=== PATIENT | male | born 1955 | race Caucasian/White ===

== ENCOUNTER 2024-06-03 22:32 | Emergency (ER) | payer SELFPAY ==
[2024-06-03 22:33] VITALS: BP 195/102; PULSE 64; RESP 16; TEMP 36.4; O2SAT 96; BMI 30.9
--- NOTE | 2024-06-03 22:35 | XRR_ITS ---
PROCEDURE INFORMATION: Exam: XR Chest Exam date and time: 06/03/2024 10:39 PM Age: 68 years old Clinical indication: Shortness of breath; Prior surgery; Surgery date: 6+ months; Surgery type: Pacer; C/O SOB TECHNIQUE: Imaging protocol: Radiologic exam of the chest. Views: 1 view. COMPARISON: No relevant prior studies available. FINDINGS: Tubes, catheters and devices: Left chest wall implantable defibrillator. Lungs: Calcified left hilar lymph nodes. Left basilar atelectasis and/or scarring. No pulmonary consolidation. Left basilar calcified granuloma. Pleural spaces: No pleural effusion or pneumothorax. Heart/Mediastinum: Heart size is within normal limits. Bones/joints: No acute osseous abnormalities are seen. XR/XR chest 1V portable [id number] IMPRESSION: No acute cardiopulmonary disease.
[2024-06-03 22:46] VITALS: PULSE 64; RESP 18; O2SAT 95
[2024-06-03 22:50] LABS: Basophils % 0.1 %; Eosinophils # 0.1 10^3/uL (0.0-0.8); Eosinophils % 1.2 %; Hematocrit 45.3 % (37-53); Lymphocytes # 1.8 10^3/uL (0.8-4.8); Lymphocytes % 18.1 %; Mean Corpuscular HGB Conc 32.9 g/dL (30-55); Mean Corpuscular Hemoglobin 27.6 pg (27-33); Mean Corpuscular Volume 83.9 fl (82-101); Mean Platelet Volume 9.1 fL (7.4-10.4); Monocytes # 0.7 10^3/uL (0.2-0.9); Monocytes % 7.1 %; Neutrophils # 7.47 10^3/uL (1.8-7.7); Neutrophils % 73.2 %; Nucleated Red Blood Cells % 0 %; Platelet Count 212 10^3/cmm (157-399); Red Cell Distribution Width 12.8 % (12.1-15.1); White Blood Count 10.19 10^3/uL (3.29-11.43)
--- NOTE | 2024-06-03 22:54 | ECG_ITS ---
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 Measurements Intervals [place] Rate: 58 P: 34 NV: 179 QRS: 45 QRSD: 109 T: 62 QT: 369 QTc: 365 Interpretive Statements SINUS BRADYCARDIA WITH SINUS ARRHYTHMIA INCOMPLETE RIGHT BUNDLE BRANCH BLOCK [90+ ms QRS DURATION, TERMINAL R IN V1/V2, 40+ ms S IN I/aVL/V4/V5/V6] No previous ECG available for comparison Electronically Signed On 06-04-2024 18:50:01 ELECTRO MECHANICAL TECHNOLOGIST by Jose Juan M.D. [email or web address]
[2024-06-03 23:08] LABS: Troponin(5th) Baseline 11 ng/L (0-15)
[2024-06-03 23:15] LABS: Alanine Aminotransferase 26 U/L (0-41); Albumin Level 4.3 g/dL (3.5-5.2); Alkaline Phosphatase 57 U/L (40-130); Anion Gap 15.6 (5-19); Aspartate Amino Transferase 24 U/L (0-40); Blood Urea Nitrogen 12 mg/dL (8-23); Calcium 9.3 mg/dL (8.5-10.5); Carbon Dioxide 25 mmol/L (22-29); Chloride 101 mmol/L (98-107); Creatinine Clr Calc Pharmacy 98.6914; Globulin 3.2 g/dL (1.3-4.6); Glomerular Filtration Rate 96.4 mL/min (90-130); Glucose 99 mg/dL (65-115); NT Pro B Type Natriuretic Pept 104 pg/mL (0-125); Osmolality Calculated 286 mOsm/kg (285-295); Potassium 3.6 mmol/L (3.5-5.1); Sodium 138 mmol/L (136-145); Total Bilirubin 0.4 mg/dL (0.15-1.2); Total Protein 7.5 g/dL (6.6-8.7)
[2024-06-03 23:57] LABS: Influenza A NEGATIVE (Negative); Influenza B NEGATIVE (Negative); Respiratory Syncytial Virus Ce NEGATIVE (Negative); SARS-CoV-2 PCR NEGATIVE (Negative)
--- NOTE | 2024-06-04 00:38 | ED_ITS ---
Documented by User: JAMES Loving 06/04/24 00:53 HPI - SOB/Dyspnea 2 General: Chief Complaint: Shortness of Breath/Dyspnea Stated Complaint: SOB tingles in arms and feet Time Seen by Provider: 06/03/24 22:34 History of Present Illness: HPI Narrative: Patient is a 68-year-old man that presents to the emergency department with complaints of shortness of breath with tingling in arms and legs that started at 8:30 PM tonight. Since that time symptoms have resolved. Initially upon arrival in the emergency department he was hypertensive but that has improved. Currently 153/92. Patient denies chest pain. He denies fever or chills. He does have a cough that is intermittently productive. The sputum is clear to white. He has no chronic lung disease. He does not smoke or use any tobacco products. He does have a history of Brugada syndrome and has a defibrillator. Strong family history with 2 brothers that have of cardiac disease. Associated symptoms: Deny chest pain, palpitations or syncope Related Data Allergies Allergy/AdvReac Type Severity Reaction Status Date / Time No Known Allergies Allergy Verified 06/03/24 22:41 Review of Systems 2 General: Reports: 10 or more systems reviewed and unremarkable except in HPI and below Card: Denies: chest pain, palpitations, irregular heart rhythm, edema, swelling of feet/ankles, syncope, leg pain with exertion or acrocyanosis Resp: Reports: dyspnea and productive cough Physical Exam 2 Const: COMMON NORMALS: no acute distress, patient oriented x3 and alert G ENERAL APPEARANCE: cooperative ORIENTATION/CONSCIOUSNESS: Yes awake, Yes oriented to person, Yes oriented to place and Yes oriented to time HENMT: COMMON NORMALS: normocephalic and atraumatic HEAD & SCALP: n ormocephalic and atraumatic FACE & SINUS: normal facial exam MOUTH: Normal oral and palatal mucosa present THROAT: posterior oropharynx normal Eye: COMMON NORMALS: Equal, round and reactive pupils present, EOMs intact bilaterally, conjunctivae normal and no scleral icterus GENERAL EYE: a ppearance normal, both eyes and all related structures ALIGNMENT: Yes alignment normal PERIORBITAL: periorbital findings normal CONJUNCTIVA: Yes conjunctivae normal PUPIL: Yes Equal, round and reactive pupils present Neck/C-Spine: COMMON NORMALS: full ROM GENERAL: Yes normal visual inspection Lymph: LYMPHATIC: no lymphadenopathy noted Chest: COMMONS NORMALS: normal inspection of the chest Breast/axilla inspection: Yes no chest deformity, asymmetry, normal contours, no nodules, masses, tenderness Resp: COMMON NORMALS: normal respiratory effort, No retractions, No use of accessory muscles and clear to auscultation bilaterally EFFORT & INSPECTION: Yes able to speak in complete sentences and Yes symmetric chest movement A USCULTATION: clear to auscultation bilaterally Cardio: COMMON NORMALS: regular rate, regular rhythm and Peripheral pulses 2+ throughout RATE: regular rate RHYTHM: regular rhythm PERIPHERAL PULSES: Peripheral pulses 2+ throughout GI: COMMON NORMALS: Normal to inspection, nondistended, normoactive bowel sounds present, Soft to palpation, non-tender and No hepatosplenomegaly present INSPECTION: Yes normal to inspection AUSCULTATION: Yes normoactive bowel sounds PALPATION: Yes Soft to palpation and Yes No hepatosplenomegaly present RECTAL EXAM: Yes deferred Extremity: COMMON NORMALS: normal to inspection GENERAL: Yes normal exam except as noted Neuro: COMMON NORMALS: patient oriented x3 SENSORIUM/ORIENTATION: Yes alert, Yes oriented to person, Yes oriented to place and Yes oriented to time CRANIAL NERVES: Yes CN normal except as noted Psych: COMMON NORMALS: mental status grossly normal, Normal thought process present, cooperative, activity/motor behavior normal, denies homicidal ideation and denies suicidal ideation THOUGHT PROCESS: Normal thought process present Skin: COMMON NORMALS: no rashes or lesions noted, no wounds and turgor normal GENERAL SKIN EXAM: no rashes or lesions noted and turgor normal Course 2 Vital Signs: Vital signs: Vital Signs Temperature 97.6 F 06/03/24 22:33 Pulse Rate 53 L 06/04/24 01:02 Respiratory Rate 18 06/03/24 22:46 Blood Pressure 153/78 06/04/24 01:02 Pulse Oximetry 92 06/04/24 01:02 Oxygen Delivery Me thod Room Air 06/04/24 01:02 MDM - SOB/Dyspnea Medical Decision Making Patient was evaluated in the emergency department with complaints of shortness of breath. Shortness of breath resolved before his arrival in the emergency department but patient was referred here due to his history of Brugada syndrome. He reports primary physician believes that he could have a pulmonary embolism. Here in the emergency department patient reported shortness of breath that lasted for short period of time at home. He denies any chest pain and denies palpitations. He has not had his defibrillator fire His laboratory evaluation included a CBC, CMP, COVID influenza RSV test, BNP and troponin series. We obtained an EKG as well as a XR chest. The XR chest revealed no infiltrates or other cardiopulmonary abnormality. monitor technician has revealed a sinus bradycardia throughout his day here in the emergency department. His EKG is performed at 2254 and reveals a sinus bradycardia at a ventricular rate of 58 beats a minute. There is a QTc of 367. There is no ectopy, consistent ST elevation or abnormal T wave inversion. There is less than 1 mm elevation in leads V2 and V3. I reviewed the EKG with Dr. Escobar. CBC reveals no leukocytosis anemias or thrombocytopenia. CMP reveals no electrolyte abnormalities, dehydration, renal or liver dysfunction. Negative COVID influenza and RSV BNP is within normal limits 104 Troponin series initiated. Initial is 11. Heart score of 3 points for 1-2 risk factors and 2 points for age. I reviewed diagnostic findings with patient as well as Dr. Escobar. We are going to wait for the 2-hour delta. Patient did ask questions regarding the utility of a CT chest with contrast to rule out pulmonary embolism. This was a suggestion by his primary care doctor. Patient's shortness of breath had improved prior to his arrival. He denied any chest pain, has not had any EKG changes, and is not tachycardic. At this time I do not think any further diagnostics are warranted. Patient verbalizes understanding At this time while we are awaiting 2-hour delta, I will transition care to Dr. Escobar. Lab Data 06/03/24 22:40 06/03/24 22:40 Labs/Radiology: Radiology Impressions Chest X-Ray 06/03/24 22:35 IMPRESSION: No acute cardiopulmonary disease. Laboratory Results WBC 10.19 10^3/uL (3.29-11.43) 06/03/24 22:40 RBC 5.40 10^6/uL (3.85-5.65) 06/03/24 22:40 Hgb 14.90 g/dL (11.27-16.99) 06/03/24 22:40 Hct 45.3 % (37-53) 06/03/24 22:40 MCV 83.9 fl (82-101) 06/03/24 22:40 MCH 27.6 pg (27-33) 06/03/24 22:40 MCHC 32.9 g/dL (30-55) 06/03/24 22:40 RDW 12.8 % (12.1-15.1) 06/03/24 22:40 Plt Count 212 10^3/cmm (157-399) 06/03/24 22:40 MPV 9.1 fL (7.4-10.4) 06/03/24 22:40 Neut % (Auto) 73.2 % 06/03/24 22:40 Lymph % (Auto) 18.1 % 06/03/24 22:40 [place] % (Auto) 7.1 % 06/03/24 22:40 Eos % (Auto) 1.2 % 06/03/24 22:40 Baso % (Auto) 0.1 % 06/03/24:40 Neut # (Auto) 7.47 10^3/uL (1.8-7.7) 06/03/24 22:40 Lymph # (Auto) 1.8 10^3/uL (0.8-4.8) 06/03/24 22:40 [place] # (Auto) 0.7 10^3/uL (0.2-0.9) 06/03/24 22:40 Eos # (Auto) 0.1 10^3/uL (0.0-0.8) 06/03/24 22:40 Baso # (Auto) 0.0 10^3/uL (0.0-0.1) 06/03/24 22:40 Nucleated RBC % (auto) 0 % 06/03/24:40 Nucleated RBCs # 0.0 /100WBC 06/03/24 22:40 Sodium 138 mmol/L (136-145) 06/03/24 22:40 Potassium 3.6 mmol/L (3.5-5.1) 06/03/24 22:40 Chloride 101 mmol/L (98-107) 06/03/24 22:40 Carbon Dioxide 25 mmol/L (22-29) 06/03/24 22:40 Anion Gap 15.6 (5-19) 06/03/24 22:40 BUN 12 mg/dL (8-23) 06/03/24 22:40 Creatinine 0.8 mg/dL (0.7-1.2) 06/03/24 22:40 GFR Calculation 96.4 mL/min (90-130) 06/03/24 22:40 Glucose 99 mg/dL (65-115) 06/03/24 22:40 Calculated Osmolality 286 mOsm/kg (285-295) 06/03/24 22:40 Calcium 9.3 mg/dL (8.5-10.5) 06/03/24 22:40 Total Bilirubin 0.4 mg/dL (0.15-1.2) 06/03/24 22:40 AST 24 U/L (0-40) 06/03/24 22:40 ALT 26 U/L (0-41) 06/03/24 22:40 Alkaline Phosphatase 57 U/L (40-130) 06/03/24 22:40 Troponin T Baseline 11 ng/L (0-15) 06/03/24 22:40 Troponin T 120 Minute 9.87 ng/L (0-15) 06/04/24 00:40 Delta Troponin T -1.13 ABS# (0-10) L 06/04/24 00:40 NT-Pro-B Natriuret Pep 104 pg/mL (0-125) 06/03/24 22:40 Total Protein 7.5 g/dL (6.6-8.7) 06/03/24 22:40 Albumin 4.3 g/dL (3.5-5.2) 06/03/24 22:40 Globulin 3.2 g/dL (1.3-4.6) 06/03/24 22:40 Coronavirus (PCR) Negative (Negative) 06/03/24 22:42 Influenza A (PCR) Negative (Negative) 06/03/24 22:42 Influenza Type B (PCR) Negative (Negative) 06/03/24 22:42 RSV (PCR) Negative (Negative) 06/03/24 22:42 All radiology interpretation(s) finalized by discharge Discharge Plan Discharge Patient Disposition: Home Clinical Impression: Breath shortness Condition: Stable Discharge Orders: Discharge ED (Routine); Ordered 06/04/24 Ordered By: Mo Escobar Discharge Diet: Advance as tolerated Discharge Activity: Resume usual activity Patient Instructions: Dyspnea (ED), Pain Management Activity Restrictions/Additional Instructions: Please return to the emergency department for new, concerning, worsening symptoms. Please call your doctor Wednesday to set up a follow-up appointment. Print Language: Gibraltarian Coding Level of Care Code ED Lockstitch Waistline Joiner for Lj Fwd Documented by User: Mo Escobar MD 06/04/24 02:06 HPI - SOB/Dyspnea 2 General: Chief Complaint: Shortness of Breath/Dyspnea Stated Complaint: SOB tingles in arms and feet Time Seen by Provider: 06/03/24 22:34 Related Data Allergies Allergy/AdvReac Type Severity Reaction Status Date / Time No Known Allergies Allergy Verified 06/03/24 22:41 Course 2 Vital Signs: Vital signs: Vital Signs Temperature 97.6 F 06/03/24 22:33 Pulse Rate 53 L 06/04/24 01:02 Respiratory Rate 18 06/03/24 22:46 Blood Pressure 153/78 06/04/24 01:02 Pulse Oximetry 92 06/04/24 01:02 Oxygen Delivery Me thod Room Air 06/04/24 01:02 MDM - SOB/Dyspnea Medical Decision Making Patient was evaluated in the emergency department with complaints of shortness of breath. Shortness of breath resolved before his arrival in the emergency department but patient was referred here due to his history of Brugada syndrome. He reports primary physician believes that he could have a pulmonary embolism. Here in the emergency department patient reported shortness of breath that lasted for short period of time at home. He denies any chest pain and denies palpitations. He has not had his defibrillator fire His laboratory evaluation included a CBC, CMP, COVID influenza RSV test, BNP and troponin series. We obtained an EKG as well as a XR chest. The XR chest revealed no infiltrates or other cardiopulmonary abnormality. monitor technician has revealed a sinus bradycardia throughout his day here in the emergency department. His EKG is performed at 2254 and reveals a sinus bradycardia at a ventricular rate of 58 beats a minute. There is a QTc of 367. There is no ectopy, consistent ST elevation or abnormal T wave inversion. There is less than 1 mm elevation in leads V2 and V3. I reviewed the EKG with Dr. Escobar. CBC reveals no leukocytosis anemias or thrombocytopenia. CMP reveals no electrolyte abnormalities, dehydration, renal or liver dysfunction. Negative COVID influenza and RSV BNP is within normal limits 104 Troponin series initiated. Initial is 11. Heart score of 3 points for 1-2 risk factors and 2 points for age. I reviewed diagnostic findings with patient as well as Dr. Escobar. We are going to wait for the 2-hour delta. Patient did ask questions regarding the utility of a CT chest with contrast to rule out pulmonary embolism. This was a suggestion by his primary care doctor. Patient's shortness of breath had improved prior to his arrival. He denied any chest pain, has not had any EKG changes, and is not tachycardic. At this time I do not think any further diagnostics are warranted. Patient verbalizes understanding At this time while we are awaiting 2-hour delta, I will transition care to Dr. Escobar. 2-hour troponin was 9. Patient is asymptomatic. He is stable for discharge. Recommended he follow-up with his primary care physician and/or stick welder later this week for recheck. Lab Data 06/03/24 22:40 06/03/24 22:40 Labs/Radiology: Radiology Impressions Chest X-Ray 06/03/24 22:35 IMPRESSION: No acute cardiopulmonary disease. Laboratory Results WBC 10.19 10^3/uL (3.29-11.43) 06/03/24 22:40 RBC 5.40 10^6/uL (3.85-5.65) 06/03/24 22:40 Hgb 14.90 g/dL (11.27-16.99) 06/03/24 22:40 Hct 45.3 % (37-53) 06/03/24 22:40 MCV 83.9 fl (82-101) 06/03/24 22:40 MCH 27.6 pg (27-33) 06/03/24 22:40 MCHC 32.9 g/dL (30-55) 06/03/24 22:40 RDW 12.8 % (12.1-15.1) 06/03/24 22:40 Plt Count 212 10^3/cmm (157-399) 06/03/24 22:40 MPV 9.1 fL (7.4-10.4) 06/03/24 22:40 Neut % (Auto) 73.2 % 06/03/24 22:40 Lymph % (Auto) 18.1 % 06/03/24 22:40 [place] % (Auto) 7.1 % 06/03/24 22:40 Eos % (Auto) 1.2 % 06/03/24 22:40 Baso % (Auto) 0.1 % 06/03/24 22:40 Neut # (Auto) 7.47 10^3/uL (1.8-7.7) 06/03/24 22:40 Lymph # (Auto) 1.8 10^3/uL (0.8-4.8) 06/03/24 22:40 [place] # (Auto) 0.7 10^3/uL (0.2-0.9) 06/03/24 22:40 Eos # (Auto) 0.1 10^3/uL (0.0-0.8) 06/03/24 22:40 Baso # (Auto) 0.0 10^3/uL (0.0-0.1) 06/03/24 22:40 Nucleated RBC % (auto) 0 % 06/03/24:40 Nucleated RBCs # 0.0 /100WBC 06/03/24 22:40 Sodium 138 mmol/L (136-145) 06/03/24 22:40 Potassium 3.6 mmol/L (3.5-5.1) 06/03/24 22:40 Chloride 101 mmol/L (98-107) 06/03/24 22:40 Carbon Dioxide 25 mmol/L (22-29) 06/03/24 22:40 Anion Gap 15.6 (5-19) 06/03/24 22:40 BUN 12 mg/dL (8-23) 06/03/24 22:40 Creatinine 0.8 mg/dL (0.7-1.2) 06/03/24 22:40 GFR Calculation 96.4 mL/min (90-130) 06/03/24 22:40 Glucose 99 mg/dL (65-115) 06/03/24 22:40 Calculated Osmolality 286 mOsm/kg (285-295) 06/03/24 22:40 Calcium 9.3 mg/dL (8.5-10.5) 06/03/24 22:40 Total Bilirubin 0.4 mg/dL (0.15-1.2) 06/03/24 22:40 AST 24 U/L (0-40) 06/03/24 22:40 ALT 26 U/L (0-41) 06/03/24 22:40 Alkaline Phosphatase 57 U/L (40-130) 06/03/24 22:40 Troponin T Baseline 11 ng/L (0-15) 06/03/24 22:40 Troponin T 120 Minute 9.87 ng/L (0-15) 06/04/24 00:40 Delta Troponin T -1.13 ABS# (0-10) L 06/04/24 00:40 NT-Pro-B Natriuret Pep 104 pg/mL (0-125) 06/03/24 22:40 Total Protein 7.5 g/dL (6.6-8.7) 06/03/24 22:40 Albumin 4.3 g/dL (3.5-5.2) 06/03/24 22:40 Globulin 3.2 g/dL (1.3-4.6) 06/03/24 22:40 Coronavirus (PCR) Negative (Negative) 06/03/24 22:42 Influenza A (PCR) Negative (Negative) 06/03/24 22:42 Influenza Type B (PCR) Negative (Negative) 06/03/24 22:42 RSV (PCR) Negative (Negative) 06/03/24 22:42 Discharge Plan Discharge Patient Disposition: Home Clinical Impression: Breath shortness Condition: Stable Discharge Orders: Discharge ED (Routine); Ordered 06/04/24 Ordered By: Mo Escobar Discharge Diet: Advance as tolerated Discharge Activity: Resume usual activity Patient Instructions: Dyspnea (ED), Pain Management Activity Restrictions/Additional Instructions: Please return to the emergency department for new, concerning, worsening symptoms. Please call your doctor Wednesday to set up a follow-up appointment. Print Language: Gibraltarian Coding Level of Care Code ED Lockstitch Waistline Joiner for Lj Gonzales
[2024-06-04 01:02] VITALS: BP 153/78; PULSE 53; O2SAT 92
[2024-06-04 01:14] LABS: Troponin 5 2HR 9.87 ng/L (0-15)
[2024-06-04 01:17] LABS: Troponin 5 2HR Delta -1.13 ABS# (0-10)
[2024-06-04 02:21] VITALS: BP 168/83; PULSE 60; RESP 16; O2SAT 94
== END 2024-06-04 02:23 | disposition home or self-care (01) ==
PROVIDERS: Emergency Provider Nurse Practitioner
DX: R06.02 Shortness of breath (principal); Z11.52 Encounter for screening for COVID-19
CPT/HCPCS: 36415; 71045; 80053; 83880; 84484; 85025; 87637; 93005; 99285

== ENCOUNTER 2024-06-10 02:27 | Observation (INO) | payer SELFPAY ==
[2024-06-10] VITALS (12 sets, daily range): BP systolic 117–199; BP diastolic 68–103; PULSE 55–82; RESP 15–20; TEMP 36.4–36.9; O2SAT 93–99; BMI 30.4
--- NOTE | 2024-06-10 02:38 | XRR_ITS ---
PROCEDURE INFORMATION: Exam: XR Chest Exam date and time: 06/10/2024 3:10 AM Age: 68 years old Clinical indication: Prior surgery; Surgery date: 6+ months; Surgery type: Pacer; C/O possible CVA. Hypertensive on monitor. ; Additional info: Strokelike symptoms right hand TECHNIQUE: Imaging protocol: Radiologic exam of the chest. Views: 1 view. COMPARISON: CR (CHEST, ) 06/03/2024 10:39 PM FINDINGS: Tubes, catheters and devices: Unchanged left AICD. Lungs: No consolidation, mass, or pulmonary edema. Pleural spaces: No pneumothorax or pleural effusion. Heart/Mediastinum: Cardiomediastinal silhouette is stable. Stable calcified left hilar lymph nodes. Bones/joints: No acute osseous abnormality. XR/XR chest 1V portable [id number] IMPRESSION: No acute findings.
--- NOTE | 2024-06-10 02:38 | CTR_ITS ---
PROCEDURE INFORMATION: Exam: CTA Head With Contrast, Arteriography Exam date and time: 06/10/2024 2:47 AM Age: 68 years old Clinical indication: Stroke-like symptoms; Speech disturbance; RT upper extremity and RT lower extremity weakness; Additional info: Strokelike symptoms and right hand TECHNIQUE: Imaging protocol: Computed tomographic angiography of the head with contrast. Exam focused on the arteries. 3D rendering (Not supervised by radiologist): MIP and/or 3D reconstructed images were created by the technologist. Radiation optimization: All CT scans at this facility use at least one of these dose optimization techniques: automated exposure control; mA and/or kV adjustment per patient size (includes targeted exams where dose is matched to clinical indication); or iterative reconstruction. Contrast material: OMNI 350; Contrast volume: 100 ml; Contrast route: INTRAVENOUS (IV); COMPARISON: CT head thrombolytic [id number] 06/10/2024 2:44 AM RADIATION DOSE METRICS: Total DLP (mGy-cm): 507.79 FINDINGS: ANTERIOR CIRCULATION: Right internal carotid artery: Intracranial segment is patent with no significant stenosis. No aneurysm. Right middle cerebral artery: No occlusion or significant stenosis. No aneurysm. 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 No occlusion or significant stenosis. No aneurysm. Left internal carotid artery: Intracranial segment is patent with no significant stenosis. No aneurysm. Left middle cerebral artery: No occlusion or significant stenosis. No aneurysm. Left anterior cerebral artery: No occlusion or significant stenosis. No aneurysm. POSTERIOR CIRCULATION: Right vertebral artery: No occlusion or significant stenosis. No aneurysm. Left vertebral artery: No occlusion or significant stenosis. No aneurysm. Basilar artery: No occlusion or significant stenosis. No aneurysm. Right posterior cerebral artery: Persistent origin of right posterior cerebral artery with tiny hypoplastic right P1 segment, a normal anatomic variant. No occlusion or significant stenosis. No aneurysm. Left posterior cerebral artery: No occlusion or significant stenosis. No aneurysm. Brain: No definite mass, mass effect, or midline shift. Cerebral ventricles: No ventriculomegaly. Bones/joints: Unremarkable. No acute fracture. Soft tissues: Unremarkable. PROCEDURE INFORMATION: Exam: CTA Neck With Contrast Exam date and time: 06/10/2024 2:47 AM Age: 68 years old Clinical indication: Stroke-like symptoms; Speech disturbance; RT upper extremity and RT lower extremity weakness; Additional info: Strokelike symptoms and right hand TECHNIQUE: Imaging protocol: Computed tomographic angiography of the neck with contrast. Exam focused on the cervical segments of the vasculature. 3D rendering (Not supervised by radiologist): MIP and/or 3D reconstructed images were created by the technologist. Radiation optimization: All CT scans at this facility use at least one of these dose optimization techniques: automated exposure control; mA and/or kV adjustment per patient size (includes targeted exams where dose is matched to clinical indication); or iterative reconstruction. Contrast material: OMNI 350; Contrast volume: 100 ml; Contrast route: INTRAVENOUS (IV); COMPARISON: CT head thrombolytic [id number] 06/10/2024 2:44 AM RADIATION DOSE METRICS: Total DLP (mGy-cm): 507.79 FINDINGS: Tubes, catheters and devices: Left anterior chest wall cardiac pacemaker/AICD. Right common carotid artery: No stenosis. No dissection or occlusion. Right internal carotid artery: No stenosis of the extracranial segment. No dissection or occlusion. Right external carotid artery: No occlusion or stenosis of the origin. Left common carotid artery: No stenosis. No dissection or occlusion. Left internal carotid artery: No stenosis of the extracranial segment. No dissection or occlusion. Left external carotid artery: No occlusion or stenosis of the origin. Right vertebral artery: No stenosis. No dissection or occlusion. Left vertebral artery: No stenosis. No dissection or occlusion. Soft tissues: Normal. No significant soft tissue swelling. Bones/joints: No acute osseous abnormality. Lungs: Visualized lung apices are clear. Other findings: Severe, 80-90% stenosis by NASCET criteria in the proximal to mid left ICA, close to 3 cm from its origin. No occlusion. No dissection. CT/CT angio headneck* [id number] IMPRESSION: No large vessel stenosis or occlusion. IMPRESSION: Severe, 80-90% stenosis in proximal to mid left ICA by NASCET criteria. REFERENCES: NASCET CRITERIA. The degree of stenosis in the cervical segment of the internal carotid artery is based on NASCET criteria. Normal is no stenosis. Mild is less than 50% stenosis. Moderate is 50-69% stenosis. Severe is 70% to 99% stenosis. Total occlusion is no detectable patent lumen.
--- NOTE | 2024-06-10 02:38 | CTR_ITS ---
PROCEDURE INFORMATION: Exam: CT Head Without Contrast Exam date and time: 06/10/2024 2:44 AM Age: 68 years old Clinical indication: Stroke-like symptoms; Speech disturbance; RT upper extremity and RT lower extremity weakness; Additional info: Patient states yesterday that he was experiencing some mild slurred speech with RT hand numbness and rle weakness. All symptoms resolved at this time. Last known well time of 14oo hours yesterday. TECHNIQUE: Imaging protocol: Computed tomography of the head without contrast. Radiation optimization: All CT scans at this facility use at least one of these dose optimization techniques: automated exposure control; mA and/or kV adjustment per patient size (includes targeted exams where dose is matched to clinical indication); or iterative reconstruction. Other technique: STROKE PROTOCOL was implemented. COMPARISON: No relevant prior studies available. RADIATION DOSE METRICS: Total DLP (mGy-cm): 1077.79 FINDINGS: Brain: No acute intracranial hemorrhage, acute large territory infarct, or obvious mass lesion. Age appropriate diffuse cerebral volume loss. Mild chronic white matter changes, likely to be chronic small vessel ischemic changes. No midline shift or mass effect. Cerebral ventricles: No ventriculomegaly. Paranasal sinuses: Visualized paranasal sinuses are clear. Mastoid air cells: Visualized mastoid air cells are well-aerated. Bones: No acute osseous abnormality. Soft tissues: Unremarkable. Other findings: No visible contraindication to MRI on this exam. CT/CT head thrombolytic [id number] IMPRESSION: 1. No acute intracranial abnormality identified. 2. If clinically indicated, consider further evaluation with MRI, which is more sensitive for detecting acute ischemic changes and other subtle pathology. ASSESSMENT: ASPECTS ([place] Stroke Program Early CT Score) is 10.
--- NOTE | 2024-06-10 02:40 | ED_ITS ---
HPI - Weakness 2 General: Chief complaint: Weakness Stated complaint: right side weakness arm and leg, speech Time Seen by Provider: 06/10/24 02:29 History of Present Illness: Patient presents to the ER with complaints of strokelike symptoms. About 2:00 yesterday her 12 hours ago he noticed in his right hand he was not able to write as good as he normally does. He also noticed at that time he had a little bit of right facial droop, mild slurring of his words, and mild right lower extremity weakness. Patient then proceeded to drive home and go to bed as he thought he would just come in in the morning to be evaluated. decided to make him come in now. Upon arrival to the ER patient's NIH is 0 Review of Systems 2 General: Reports: 10 or more systems reviewed and unremarkable except in HPI and below Physical Exam 2 Const: COMMON NORMALS: no acute distress, average body habitus, patient oriented x3, no limitations, healthy appearing, alert and well nourished HENMT: COMMON NORMALS: normocephalic, atraumatic, hearing grossly normal bilaterally, external ears normal, Normal external nose present, moist oral mucous membranes and oropharynx normal HEAD & SCALP: normocephalic and atraumatic NOSE: Normal external nose present EXTERNAL EAR: Yes external ears normal Eye: COMMON NORMALS: Equal, round and reactive pupils present, EOMs intact bilaterally, conjunctivae normal and no scleral icterus CONJUNCTIVA: Yes conjunctivae normal PUPIL: Yes Equal, round and reactive pupils present Neck/C-Spine: COMMON NORMALS: full ROM, no lymphadenopathy, supple, no meningeal signs, no JVD and Thyroid normal THYROID: Thyroid normal Chest: COMMONS NORMALS: normal inspection of the chest and normal palpation of entire chest wall Resp: COMMON NORMALS: normal respiratory effort, No retractions, No use of accessory muscles and clear to auscultation bilaterally AUSCULTATION: clear to auscultation bilaterally Cardio: COMMON NORMALS: no JVD, regular rate, regular rhythm, S1 normal heart sound present, S2 normal heart sound present, No gallops present (Cardio), No clicks present (Cardio), No murmurs present (Cardio) and No rub (Cardio) R ATE: regular rate RHYTHM: regular rhythm HEART SOUNDS: S1 normal heart sound present and S2 normal heart sound present GI: COMMON NORMALS: Normal to inspection, nondistended, normoactive bowel sounds present, Soft to palpation, non-tender, No hepatosplenomegaly present and no masses PALPATION: Yes Soft to palpation and Yes No hepatosplenomegaly present Neuro: COMMON NORMALS: patient oriented x3 SENSORIUM/ORIENTATION: Yes alert MENINGEAL SIGNS: Yes no meningeal signs OTHER: NIH 0 Course 2 Vital Signs: Vital signs: Vital Signs Temperature 97.9 F 06/10/24 02:33 Pulse Rate 79 06/10/24 02:33 Respiratory Rate 20 H 06/10/24 02:33 Blood Pressure 117/70 06/10/24 02:33 Pulse Oximetry 98 06/10/24 02:33 MDM - Weakness Medical Decision Making Code stroke was called, Dr. Li called we discussed the case with her. She says do not give TNKase, allow permissive hypertension, go ahead and do CTA of head and neck, and work him up as usual. Radiology called head CT negative. Normal neurodeficit lab work was ordered, Dr. Weber was consulted who agreed to place patient in observation for further evaluation and treatment. Pending lab work Medical Records I reviewed the patient's medical records. Lab Data I reviewed the patient's lab results. 06/10/24 02:39 06/10/24 02:[address] 06/10/24 02:38 IMPRESSION: 1. No acute intracranial abnormality identified. 2. If clinically indicated, consider further evaluation with MRI, which is more sensitive for detecting acute ischemic changes and other subtle pathology. ASSESSMENT: ASPECTS ([place] Stroke Program Early CT Score) is 10. Laboratory Results WBC 7.98 10^3/uL (3.29-11.43) 06/10/24 02:39 RBC 5.56 10^6/uL (3.85-5.65) 06/10/24 02:39 Hgb 15.40 g/dL (11.27-16.99) 06/10/24 02:39 Hct 47.4 % (37-53) 06/10/24 02:39 MCV 85.3 fl (82-101) 06/10/24 02:39 MCH 27.7 pg (27-33) 06/10/24 02:39 MCHC 32.5 g/dL (30-55) 06/10/24 02:39 RDW 12.9 % (12.1-15.1) 06/10/24 02:39 Plt Count 222 10^3/cmm (157-399) 06/10/24 02:39 MPV 9.0 fL (7.4-10.4) 06/10/24 02:39 Neut % (Auto) 64.0 % 06/10/24 02:39 Lymph % (Auto) 25.7 % 06/10/24 02:39 Mcculloch % (Auto) 8.0 % 06/10/24 02:39 Eos % (Auto) 1.9 % 06/10/24 02:39 Baso % (Auto) 0.1 % 06/10/24 02:39 Neut # (Auto) 5.11 10^3/uL (1.8-7.7) 06/10/24 02:39 Lymph # (Auto) 2.1 10^3/uL (0.8-4.8) 06/10/24 02:39 [place]ulloch # (Auto) 0.6 10^3/uL (0.2-0.9) 06/10/24 02:39 Eos # (Auto) 0.2 10^3/uL (0.0-0.8) 06/10/24 02:39 Baso # (Auto) 0.0 10^3/uL (0.0-0.1) 06/10/24 02:39 Nucleated RBC % (auto) 0 % 06/10/24 02:39 Nucleated RBCs # 0.0 /100WBC 06/10/24 02:39 PT 14.50 SECONDS (12.1-14.9) 06/10/24 02:39 INR 1.06 (0.8-1.2) 06/10/24 02:39 APTT 29.9 SECONDS (23.9-36.7) 06/10/24 02:39 POC Glucose 106 mg/dL (70-110) 06/10/24 02:32 XR interpretation done by ED provider, pending radiology final review Discharge Plan Discharge Patient Disposition: Placed in Observation Clinical Impression: Brain TIA Hypertension Qualifiers: Hypertension type: unspecified Qualified Code(s): I10 - Essential (primary) hypertension Coding Level of Care Code ED 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
[2024-06-10 02:46] LABS: Glucose Point of Care 106 mg/dL (70-110)
[2024-06-10 02:46] LABS: Basophils % 0.1 %; Eosinophils # 0.2 10^3/uL (0.0-0.8); Eosinophils % 1.9 %; Hematocrit 47.4 % (37-53); Lymphocytes # 2.1 10^3/uL (0.8-4.8); Lymphocytes % 25.7 %; Mean Corpuscular HGB Conc 32.5 g/dL (30-55); Mean Corpuscular Hemoglobin 27.7 pg (27-33); Mean Corpuscular Volume 85.3 fl (82-101); Monocytes # 0.6 10^3/uL (0.2-0.9); Neutrophils # 5.11 10^3/uL (1.8-7.7); Nucleated Red Blood Cells % 0 %; Platelet Count 222 10^3/cmm (157-399); Red Blood Count 5.56 10^6/uL (3.85-5.65); Red Cell Distribution Width 12.9 % (12.1-15.1); White Blood Count 7.98 10^3/uL (3.29-11.43)
[2024-06-10 02:56] LABS: INR 1.06 (0.8-1.2)
[2024-06-10] MEDS: iohexol 350 mg/mL 500 mL Btl (per mL) IV (02:56)
[2024-06-10 02:57] LABS: Partial Thromboplastin Time 29.9 SECONDS (23.9-36.7)
--- NOTE | 2024-06-10 03:05 | ECG_ITS ---
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1955 Requested By: Jermaine Bahena Order Number: [id number] Ministerio MD: JADE JACOBS Measurements Intervals [place] Rate: 68 P: 22 IL: 173 QRS: 12 QRSD: 109 T: 37 QT: 364 QTc: 388 Interpretive Statements SINUS RHYTHM INCOMPLETE RIGHT BUNDLE BRANCH BLOCK [90+ ms QRS DURATION, TERMINAL R IN V1/V2, 40+ ms S IN I/aVL/V4/V5/V6] Compared to ECG 06/03/2024 22:54:25 Sinus bradycardia no longer present Sinus arrhythmia no longer present Electronically Signed On 06-13-2024 23:41:46 DIGITAL PRESS OPERATOR by JADE JACOBS [id number] [id number]
[2024-06-10 03:19] LABS: Troponin(5th) Baseline 11 ng/L (0-15)
[2024-06-10 03:26] LABS: Alanine Aminotransferase 21 U/L (0-41); Albumin Level 4.5 g/dL (3.5-5.2); Alkaline Phosphatase 59 U/L (40-130); Anion Gap 14.7 (5-19); Aspartate Amino Transferase 19 U/L (0-40); Blood Urea Nitrogen 16 mg/dL (8-23); Calcium 9.3 mg/dL (8.5-10.5); Carbon Dioxide 24 mmol/L (22-29); Chloride 104 mmol/L (98-107); Creatinine Clr Calc Pharmacy 98.0015; Globulin 2.9 g/dL (1.3-4.6); Glomerular Filtration Rate 96.4 mL/min (90-130); Glucose 102 mg/dL (65-115); Osmolality Calculated 289 mOsm/kg (285-295); Potassium 3.7 mmol/L (3.5-5.1); Sodium 139 mmol/L (136-145); Thyroid Stimulating Hormone 4.75 uIU/mL (0.27-4.20); Total Bilirubin 0.4 mg/dL (0.15-1.2); Total Protein 7.4 g/dL (6.6-8.7)
[2024-06-10 03:27] LABS: Alcohol Level < 10 mg/dL (0-10)
[2024-06-10 04:00] LABS: Bilirubin Urine Negative (Negative); Blood Urine Trace (Negative); Glucose Urine UA Negative (Normal); Ketones Urine Negative (Negative); Leukocyte Esterase Urine Negative (Negative); Nitrate Urine Negative (Negative); Protein Urine Negative (Negative); Urine Appearance Clear (CLEAR); Urine Color Yellow (Yellow); Urobilinogen Urine 0.2 mg/dL (Negative); pH Urine 6.5 (5-7)
[2024-06-10 04:07] LABS: Amphetamines Screen Urine Negative (Negative); Barbiturates Screen Urine Negative (Negative); Benzodiazepines Screen Urine Negative (Negative); Cocaine Screen Urine Negative (Negative); Opiate Screen Urine Negative (Negative); PCP Screen Urine Negative (Negative); THC Screen Urine Negative (Negative)
[2024-06-10 04:17] LABS: Add Urine Microscopic? YES; Bacteria Urine TRACE /hpf; RBC Urine 0-4 /hpf (0-2); Specific Gravity, Urine 1.048 (1.005-1.030); Squamous Epithelial Cell Urine 0-4 /hpf (0-5); UA Manual Slide Review YES; WBC Urine 0-4 /hpf (0-5)
--- NOTE | 2024-06-10 04:41 | ECG_ITS ---
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
--- NOTE | 2024-06-10 05:00 | PM.HP ---
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 No slurring of speech at all CT head unremarkable, CTA head and neck consistent with left ICA stenosis 70 to 90% Patient is hypertensive currently on room air Review of Systems Const: Denies: fever(s) Eyes: Denies: change in vision ENMT: Denies: throat pain Card: Denies: chest pain Resp: Denies: dyspnea GI: Denies: abdominal pain Neuro: Reports: numbness in extremities Medications/Allergies Home Medications ?Medication ?Instructions ?Recorded ?Confirmed ?Last Taken ?Type amlodipine 5 mg tablet 5 mg PO DAILY 06/10/24 06/10/24 Unknown History levothyroxine 25 mcg tablet 25 mcg PO QAM 06/10/24 06/10/24 Unknown History metoprolol tartrate 25 mg tablet 25 mg PO BID 06/10/24 06/10/24 Unknown History Allergies Allergy/AdvReac Type Severity Reaction Status Date / Time No Known Allergies Allergy Verified 06/10/24 03:21 PFSH Acute PFSH: Medical History Breath shortness Hypertension Vitals/I&O/Wt Last Vital Signs Temp 97.9 F 06/10/24 04:15 Pulse 71 06/10/24 04:51 Resp 15 06/10/24 04:15 BP 183/89 06/10/24 04:51 Pulse Ox 93 06/10/24 04:51 O2 Del Method Room Air 06/10/24 04:15 06/09/24 06/09/24 06/10/24 14:59 22:59 06:59 Intake Total 0 / 0 Balance 0 / 0 Weight last 48 hrs Weight 93.168 kg Weight 93.922 kg Weight 90.718 kg Physical Exam Narrative: Patient laying supine Complaining of numbness right leg and arm No pronation drift No slurring of speech Right arm slightly weaker than left Awake and alert GCS 15 AOx4 Abdomen soft Pleasant and cooperative S1, S2 Data 06/10/24 02:39 06/10/24 02:39 A&P Assessment and plan (1) Hypertension: Qualifiers: Hypertension type: unspecified Qualified Code(s): I10 - Essential (primary) hypertension (2) Brain TIA: (3) Breath shortness: (4) Acute ischemic left ICA stroke: Plan Acute left-ICA stroke 70-90% stenosis evident on CTA head neck Start aspirin and Plavix along statins Echo with bubble study Patient is in sinus rhythm Permissive hypertension Requested PT/OT no need of speech therapy patient has no slurring of speech, Check lipid profile and hemoglobin A1c Likely will be discharged in next 24 hours Full code Cardiac diet Continue levothyroxine Patient need referral for vascular surgery outpatient for left ICA stenosis PDMP PDMP Reviewed: Not Reviewed Attestations Medical Necessity Statement*: Anticipating discharge within 24 to 48 hours Diagnoses Hypertension I10 Hypertension type: unspecified Brain TIA G45.9 Breath shortness R06.02 Acute ischemic left ICA stroke I63.232
[2024-06-10 05:16] LABS: Troponin 5 2HR 8.68 ng/L (0-15)
[2024-06-10 05:24] LABS: Troponin 5 2HR Delta -2.32 ABS# (0-10)
[2024-06-10] MEDS: levothyroxine 25 mcg Tablet PO (05:31)
[2024-06-10] MEDS: enoxaparin 40 mg/0.4 mL Syringe SUBCUT (05:31)
[2024-06-10 05:39] LABS: Estmated Average Glucose 111; Hemoglobin A1C 5.5 % (4.0-6.0)
[2024-06-10 05:40] LABS: Chol HDL Ratio 4.54 mg/dL (1.0-5.00); Cholesterol 218 mg/dL (0-200); HDL Cholesterol 48 mg/dL (60-100); LDL Cholesterol Calculated 156 mg/dL (50-129); LDL HDL Ratio 3.25 RATIO (0.00-3.22); Triglycerides 69 mg/dL (0-150)
[2024-06-10 05:47] LABS: Free T4 Free Thyroxine 1.35 ng/dL (0.82-1.77)
[2024-06-10 06:33] LABS: Vitamin B12 632 pg/mL (232-1245)
--- NOTE | 2024-06-10 08:00 | USCV_ITS ---
Rogelio Christine Age: 68 Gender: M : 1955 Exam Date: 06/10/2024 07:15 Ordering Phys: Landon Weber MD Technologist: Exam Location: [facility] Indication: cva BP: 132 / 75 HR: 58 Rhythm: Sinus Technical Quality: Adequate MEASUREMENTS (Male / Female) Normal Values 2D ECHO LV Diastolic Diameter PLAX 4.4 cm 4.2 - 5.9 / 3.9 - 5.3 cm IVS Diastolic Thickness 1.1 cm 0.6 - 1.0 / 0.6 - 0.9 cm IVS Systolic Thickness 1.5 cm LVPW Diastolic Thickness 1.5 cm 0.6 - 1.0 / 0.6 - 0.9 cm LVPW Systolic Thickness 1.6 cm LVOT Diameter 2.0 cm LV Ejection Fraction 2D Teich 65.7 % LV Ejection Fraction MOD 4C 62.7 % LV Ejection Fraction MOD 2C 68.2 % LV Ejection Fraction 2C AL 68.6 % LA Diameter 3.2 cm RA Systolic Volume 4C AL 24.9 ml RA Systolic Volume 4C MOD 24.0 ml Aorta at Sinotubular Diameter 2.9 cm DOPPLER AV Peak Velocity 107.0 cm/s LVOT Peak Velocity 105.0 cm/s AV Area Cont Eq vti 2.6 cm squared AV Area Cont Eq pk 3.1 cm squared MV Peak Velocity 99.0 cm/s MV Area PHT 3.4 cm squared Mitral E to A Ratio 0.9 TV Peak Velocity 223.7 cm/s TR Peak Velocity 266.0 cm/s TR Peak Gradient 28.3 mmHg TV Peak E Velocity 93.0 cm/s PV Peak Velocity 114.0 cm/s FINDINGS Left Ventricle Left ventricle is normal size. LV systolic function is normal with EF of 60-65%. No regional wall motion abnormalities seen. Grade 1 diastolic dysfunction Right Ventricle Normal in size and function. Pacemaker lead is seen Right Atrium Normal in size. Bubble study does not demonstrate intracardiac shunting Left Atrium Normal in size Mitral Valve Structurally normal valve. Mild mitral regurgitation. Aortic Valve Structurally normal aortic valve. No significant stenosis or regurgitation. Tricuspid Valve Mild tricuspid regurgitation. Mild pulmonary hypertension Pulmonic Valve Not well visualized Pericardium Normal Aorta Normal in size IVC Not well visualized CONCLUSIONS LV systolic function is normal with EF of 60-65% Grade 1 diastolic dysfunction Bubble study does not demonstrate intracardiac shunting Mild mitral regurgitation. Mild tricuspid regurgitation. Mild pulmonary hypertension No comparison studies are available. Avi Hale MD (Electronically Signed) Final Date: 11 June 2024 10:16 S
[2024-06-10] MEDS: aspirin 81 mg EC Tablet PO (08:10)
[2024-06-10] MEDS: clopidogrel 75 mg Tablet PO (08:10)
[2024-06-10] MEDS: atorvastatin 40 mg Tablet 80 MG PO (08:10)
--- NOTE | 2024-06-10 08:42 | ECG_ITS ---
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1955 Requested By: Jermaine Bahena Order Number: [id number] Reading MD: JADE JACOBS Measurements Intervals [place] Rate: 71 P: 9 VT: 170 QRS: -3 QRSD: 111 T: 42 QT: 379 QTc: 412 Interpretive Statements SINUS RHYTHM INCOMPLETE RIGHT BUNDLE BRANCH BLOCK [90+ ms QRS DURATION, TERMINAL R IN V1/V2, 40+ ms S IN I/aVL/V4/V5/V6] Compared to ECG 06/10/2024 04:41:33 Sinus bradycardia no longer present Electronically Signed On 06-13-2024 23:51:28 SALES MANAGER PREARRANGED FUNERALS by JADE JACOBS [email or web address]yt[employer] | [id number] [id number]"
[2024-06-10 09:20] LABS: Troponin 5 6HR 8.22 ng/L (0-15); Troponin 5 6HR Delta -2.78 ng/L (0-12)
[2024-06-10] MEDS: sodium chloride 0.9% 1,000 ML 75 ML IV (11:41)
--- NOTE | 2024-06-10 15:36 | P.PN_ITS ---
Subjective 2 Subjective: Patient was seen this morning, family members are at bedside, he continues to complain of weakness of his right arm he tells me he cannot write like before, his handwriting is not the same, he he has trouble with fine motor skills, when he was eating breakfast this morning the spoon would miss his mouth at times, he does specific his notices slight slurring of his words slight right facial droop, no visual deficits, no blurry vision, he is able to read for me, no visual deficits but does have slight slurring of his words, cannot have MRI given his pacemaker, discussed his CTA results ICA stenosis on the left of 80 to 90% Vitals/I&O/Wt Last Vital Signs Temp 97.6 F 06/10/24 11:46 Pulse 75 06/10/24 11:46 Resp 16 06/10/24 11:46 BP 172/68 06/10/24 11:46 Pulse Ox 93 06/10/24 11:46 O2 Del Method Room Air 06/10/24 11:46 06/10/24 06/10/24 06/10/24 06:59 14:59 22:59 Intake Total 0 / 0 480 / 480 Balance 0 / 0 480 / 480 Weight last 48 hrs Weight 93.168 kg Weight 93.922 kg Weight 90.718 kg Physical Exam 2 Const: COMMON NORMALS: no acute distress and patient oriented x3 Resp: COMMON NORMALS: normal respiratory effort, No retractions, No use of accessory muscles and clear to auscultation bilaterally AUSCULTATION: clear to auscultation bilaterally Cardio: COMMON NORMALS: regular rate, regular rhythm, S1 normal heart sound present and S2 normal heart sound present RATE: regular rate RHYTHM: r egular rhythm HEART SOUNDS: S1 normal heart sound present and S2 normal heart sound present GI: COMMON NORMALS: Normal to inspection, nondistended, normoactive bowel sounds present and non-tender Extremity: COMMON NORMALS: no pedal edema Neuro: COMMON NORMALS: patient oriented x3 OTHER: Right upper extremity strength slightly diminished compared to left, diminished fine motor skills on the right, [id number] abnormal on the right, right lower extremity strength seems equal compared to the left, does have a slight right facial droop, slight slurring of his words Psych: COMMON NORMALS: mental status grossly normal Data 06/10/24 02:39 06/10/24 02:39 A&P Assessment and plan (1) Hypertension: Qualifiers: Hypertension type: unspecified Qualified Code(s): I10 - Essential (primary) hypertension (2) Brain TIA: (3) Breath shortness: (4) Acute ischemic left ICA stroke: Plan Acute left CVA, residual right-sided deficits, right facial droop, mild slurring of his words aspirin and Plavix and statin Echo with bubble study IV fluids Telemetry monitoring Permissive hypertension PT OT, Speech therapy eval Dysphagia level 6 diet, soft and bite-size A1c 5.5 HDL, 48 Full code Dysphagia level 6 diet, mild thickener, speech therapy eval, aspiration precautions Continue levothyroxine Severe 80 to 90% stenosis in the proximal to mid left ICA, vascular surgery as outpatient Full code lovenox for dvt prophylaxis PDMP PDMP Reviewed: Not Reviewed Attestations 2 Medical Necessity Statement*: Patient requires hospitalization for acute left CVA Diagnoses Hypertension I10 Hypertension type: unspecified Brain TIA G45.9 Breath shortness R06.02 Acute ischemic left ICA stroke I63.232
[2024-06-10] MEDS: acetaminophen 500 mg Tablet PO ×2 (17:11→21:02)
[2024-06-11] VITALS (9 sets, daily range): BP systolic 150–200; BP diastolic 73–94; PULSE 62–94; RESP 15–20; TEMP 36.4–37; O2SAT 92–95
[2024-06-11] MEDS: sodium chloride 0.9% 1,000 ML 75 ML IV ×2 (01:03→13:56)
[2024-06-11] MEDS: levothyroxine 25 mcg Tablet PO (05:57)
[2024-06-11] MEDS: enoxaparin 40 mg/0.4 mL Syringe SUBCUT (05:57)
[2024-06-11 06:04] LABS: Basophils % 0.1 %; Eosinophils # 0.3 10^3/uL (0.0-0.8); Eosinophils % 3.5 %; Lymphocytes # 2.2 10^3/uL (0.8-4.8); Lymphocytes % 24.9 %; Mean Corpuscular Volume 87.5 fl (82-101); Mean Platelet Volume 9.2 fL (7.4-10.4); Monocytes # 0.8 10^3/uL (0.2-0.9); Monocytes % 8.7 %; Neutrophils # 5.58 10^3/uL (1.8-7.7); Neutrophils % 62.5 %; Nucleated Red Blood Cells % 0 %; Platelet Count 191 10^3/cmm (157-399); Red Blood Count 5.03 10^6/uL (3.85-5.65); Red Cell Distribution Width 13.1 % (12.1-15.1); White Blood Count 8.94 10^3/uL (3.29-11.43)
[2024-06-11 06:33] LABS: Anion Gap 11.8 (5-19); Blood Urea Nitrogen 11 mg/dL (8-23); Calcium 8.6 mg/dL (8.5-10.5); Carbon Dioxide 24 mmol/L (22-29); Chloride 107 mmol/L (98-107); Creatinine Clr Calc Pharmacy 100.1403; Glomerular Filtration Rate 112.5 mL/min (90-130); Glucose 96 mg/dL (65-115); Magnesium 1.9 mg/dL (1.7-2.3); Osmolality Calculated 287 mOsm/kg (285-295); Phosphorus 2.1 mg/dL (2.5-4.5); Potassium 3.8 mmol/L (3.5-5.1); Sodium 139 mmol/L (136-145)
[2024-06-11] MEDS: atorvastatin 40 mg Tablet 80 MG PO (07:54)
[2024-06-11] MEDS: aspirin 81 mg EC Tablet PO (07:54)
[2024-06-11] MEDS: clopidogrel 75 mg Tablet PO (07:54)
--- NOTE | 2024-06-11 13:20 | P.PN_ITS ---
Subjective 2 Subjective: Patient was seen this morning, he tells me that overall his right lower extremity strength has significantly proved he is able to ambulate he is a bit unsteady on his feet but he can ambulate, his right upper extremity weakness is improving, but he continues to have issues with fine motor skills, spatial recognition such as [id number], writing, no paresthesias, he has a slight right facial droop and slight slurring of his words but he tells me it does not bother him significantly no trouble swallowing, does have good shoulder strength, patient and family would prefer for vascular consultation and more expedited surgical intervention for his left ICA stenosis, [facility] [place], spoke to their vascular surgeon Dr. BLACKMON, patient has been accepted, patient will be transferred to [facility] Vitals/I&O/Wt Last Vital Signs Temp 97.8 F 06/11/24 11:08 Pulse 72 06/11/24 11:08 Resp 19 H 06/11/24 11:08 BP 200/94 06/11/24 11:09 Pulse Ox 92 06/11/24 11:08 O2 Del Method Room Air 06/11/24 11:08 06/10/24 06/11/24 06/11/24 22:59 06:59 14:59 Intake Total 907.5 / 1387.5 266.25 / 1653.75 Balance 907.5 / 1387.5 266.25 / 1653.75 Weight last 48 hrs Weight 94.937 kg Weight 93.168 kg Weight 93.922 kg Weight 90.718 kg Physical Exam 2 Const: COMMON NORMALS: no acute distress and patient oriented x3 Eye: COMMON NORMALS: Equal, round and reactive pupils present PUPIL: Yes Equal, round and reactive pupils present Neck/C-Spine: COMMON NORMALS: full ROM Resp: COMMON NORMALS: normal respiratory effort, No retractions, No use of accessory muscles and clear to auscultation bilaterally AUSCULTATION: clear to auscultation bilaterally Cardio: COMMON NORMALS: regular rate, regular rhythm, S1 normal heart sound present and S2 normal heart sound present RATE: regular rate RHYTHM: r egular rhythm HEART SOUNDS: S1 normal heart sound present and S2 normal heart sound present GI: COMMON NORMALS: Normal to inspection, nondistended, normoactive bowel sounds present and non-tender Extremity: COMMON NORMALS: no pedal edema Neuro: COMMON NORMALS: patient oriented x3 OTHER: Right leg strength equal to left leg Right upper extremity strength, clumsy hand, strength seems equal to the left is more diminished fine motor skills, [id number] abnormal There is slight right facial droop ? Psych: COMMON NORMALS: mental status grossly normal Data 06/11/24 05:36 06/11/24 05:36 A&P Assessment and plan (1) Hypertension: Qualifiers: Hypertension type: unspecified Qualified Code(s): I10 - Essential (primary) hypertension (2) Acute ischemic left ICA stroke: Plan Acute left ICA stroke, residual right-sided deficits, right facial droop, mild slurring of his words aspirin and Plavix and statin Echo with bubble study CONCLUSIONS LV systolic function is normal with EF of 60-65% Grade 1 diastolic dysfunction Bubble study does not demonstrate intracardiac shunting Mild mitral regurgitation. Mild tricuspid regurgitation. Mild pulmonary hypertension No comparison studies are available. IV fluids Telemetry monitoring Permissive hypertension PT OT, Speech therapy eval Dysphagia level 6 diet, soft and bite-size, no aspiration noted, no coughing, now advanced to cardiac diet A1c 5.5 HDL, 48 Full code Lovenox for DVT prophylaxis Continue levothyroxine Severe 80 to 90% stenosis in the proximal to mid left ICA, patient and family would prefer vascular intervention sooner, spoke to vascular surgery at [facility], Dr. Coelho, accepted, will be transferred to [facility] in [place] Full code lovenox for dvt prophylaxis PDMP PDMP Reviewed: Not Reviewed Attestations 2 Medical Necessity Statement*: Patient requires hospitalization for acute left ICA stroke, being transferred for vascular surgery evaluation Diagnoses Hypertension I10 Hypertension type: unspecified Acute ischemic left ICA stroke I63.232
--- NOTE | 2024-06-11 15:12 | P.TS_ITS ---
Transfer Summary Providers Date of Admission: 06/10/24 03:03 Date of Discharge/Transfer: 06/11/24 Attending Provider at Admission: Landon Weber MD Attending Provider at Transfer: Jude Rajput MD Transfer Plans: Anticipated date of transfer: 06/11/24 . Diagnoses at Discharge Discharge Diagnosis (1) Hypertension: Status: Inactive Qualifiers: Hypertension type: unspecified Qualified Code(s): I10 - Essential (primary) hypertension (2) Acute ischemic left ICA stroke: Status: Acute Reason for Visit Reason for Visit right side weakness arm and leg, speech Hospital Course Hospital Course This a 68-year-old male with a past medical history of hypertension, hypothyroidism, who presents [facility] for right sided facial droop, right hand and right leg weakness around 2 PM 06/09/2024. Patient actually tells me that he started noticing right lower extremity weakness Wednesday, it was intermittent, it would come and go, also had paresthesias in both hands that would come and go. However his significant symptoms started and persisted 06/09/2024 at 2 PM of right sided weakness, facial droop, slurring of his words, he actually drove himself home, told his about the symptoms and wanted to go to bed as he thought he would just come to the hospital in the morning for evaluation, decided to make him come to the hospital, arrived to June 10, 2024 at 2:29 AM, code stroke was called, NIH stroke scale was 0, was not deemed a tPA candidate, CT head CT/CT head thrombolytic 67066 IMPRESSION: 1. No acute intracranial abnormality identified. 2. If clinically indicated, consider further evaluation with MRI, which is more sensitive for detecting acute ischemic changes and other subtle pathology. CTA head and neck CT/CT angio headneck* [id number] IMPRESSION: No large vessel stenosis or occlusion. IMPRESSION: Severe, 80-90% stenosis in proximal to mid left ICA by NASCET criteria. -Was monitored as inpatient on aspirin, Plavix, statin, permissive hypertension, fluid therapy -Overall patient's symptomatology improved, only significant symptoms that persist is slight right facial droop, slight slurring of his words, right hand clumsiness, trouble with spatial coordination, fine motor skills -After detailed discussion with patient he would like a more urgent vascular surgery consultation, and consideration of surgery for his symptomatic acute left ICA CVA -Patient was transferred to [facility], vascular surgery Dr. BLACKMON Physical Exam Const: COMMON NORMALS: no acute distress and patient oriented x3 Resp: COMMON NORMALS: normal respiratory effort, No retractions, No use of accessory muscles and clear to auscultation bilaterally AUSCULTATION: clear to auscultation bilaterally Cardio: COMMON NORMALS: regular rate, regular rhythm, S1 normal heart sound present and S2 normal heart sound present RATE: regular rate RHYTHM: regular rhythm HEART SOUNDS: S1 normal heart sound present and S2 normal heart sound present GI: COMMON NORMALS: Normal to inspection, nondistended, normoactive bowel sounds present and non-tender Extremity: COMMON NORMALS: no clubbing, cyanosis or edema and no pedal edema Neuro: COMMON NORMALS: patient oriented x3 OTHER: Right hand clumsiness, abnormal [id number] slight right facial droop, slight slurring of words, no significant right lower extremity weakness Psych: COMMON NORMALS: mental status grossly normal TS Data Studies Completed and Pending Completed Studies During Hospitalization Category Date Time Status CT angio headneck* [id number] Stat Cat Scan 06/10/24 02:[address] head thrombolytic [id number] Stat Cat Scan 06/10/24 02:38 Completed XR chest 1V portable [id number] Stat Exams 06/10/24 02:38 Completed CV. echo w/w bubble cont [id number] Routine Ultrasound 06/10/24 08:00 Completed Laboratory Last Values WBC 8.94 10^3/uL (3.29-11.43) 06/11/24 05:36 RBC 5.03 10^6/uL (3.85-5.65) 06/11/24 05:36 Hgb 14.10 g/dL (11.27-16.99) 06/11/24 05:36 Hct 44.0 % (37-53) 06/11/24 05:36 MCV 87.5 fl (82-101) 06/11/24 05:36 MCH 28.0 pg (27-33) 06/11/24 05:36 MCHC 32.0 g/dL (30-55) 06/11/24 05:36 RDW 13.1 % (12.1-15.1) 06/11/24 05:36 Plt Count 191 10^3/cmm (157-399) 06/11/24 05:36 MPV 9.2 fL (7.4-10.4) 06/11/24 05:36 Neut % (Auto) 62.5 % 06/11/24 05:36 Lymph % (Auto) 24.9 % 06/11/24 05:36 [place] % (Auto) 8.7 % 06/11/24 05:36 Eos % (Auto) 3.5 % 06/11/24 05:36 Baso % (Auto) 0.1 % 06/11/24 05:36 Neut # (Auto) 5.58 10^3/uL (1.8-7.7) 06/11/24 05:36 Lymph # (Auto) 2.2 10^3/uL (0.8-4.8) 06/11/24 05:36 [place] # (Auto) 0.8 10^3/uL (0.2-0.9) 06/11/24 05:36 Eos # (Auto) 0.3 10^3/uL (0.0-0.8) 06/11/24 05:36 Baso # (Auto) 0.0 10^3/uL (0.0-0.1) 06/11/24 05:36 Nucleated RBC % (auto) 0 % 06/11/24 05:36 Nucleated RBCs # 0.0 /100WBC 06/11/24 05:36 PT 14.50 SECONDS (12.1-14.9) 06/10/24 02:39 INR 1.06 (0.8-1.2) 06/10/24 02:39 APTT 29.9 SECONDS (23.9-36.7) 06/10/24 02:39 Sodium 139 mmol/L (136-145) 06/11/24 05:36 Potassium 3.8 mmol/L (3.5-5.1) 06/11/24 05:36 Chloride 107 mmol/L (98-107) 06/11/24 05:36 Carbon Dioxide 24 mmol/L (22-29) 06/11/24 05:36 Anion Gap 11.8 (5-19) 06/11/24 05:36 BUN 11 mg/dL (8-23) 06/11/24 05:36 Creatinine 0.7 mg/dL (0.7-1.2) 06/11/24 05:36 GFR Calculation 112.5 mL/min (90-130) 06/11/24 05:36 Glucose 96 mg/dL (65-115) 06/11/24 05:36 POC Glucose 106 mg/dL (70-110) 06/10/24 02:32 Estimat Average Glucose 111 06/10/24 04:44 Hemoglobin A1c 5.5 % (4.0-6.0) 06/10/24 04:44 Calculated Osmolality 287 mOsm/kg (285-295) 06/11/24 05:36 Calcium 8.6 mg/dL (8.5-10.5) 06/11/24 05:36 Phosphorus 2.1 mg/dL (2.5-4.5) L 06/11/24 05:36 Magnesium 1.9 mg/dL (1.7-2.3) 06/11/24 05:36 Total Bilirubin 0.4 mg/dL (0.15-1.2) 06/10/24 02:39 AST 19 U/L (0-40) 06/10/24 02:39 ALT 21 U/L (0-41) 06/10/24 02:39 Alkaline Phosphatase 59 U/L (40-130) 06/10/24 02:39 Troponin T Baseline 11 ng/L (0-15) 06/10/24 02:39 Troponin T 120 Minute 8.68 ng/L (0-15) 06/10/24 04:44 Delta Troponin T -2.32 ABS# (0-10) L 06/10/24 04:44 Troponin T Hi Sens 6Hr 8.22 ng/L (0-15) 06/10/24 08:53 Troponin T Hi Sens 6Hr Delta -2.78 ng/L (0-12) L 06/10/24 08:53 C-Reactive Protein 3.0 mg/L (0.0-4.9) 06/10/24 02:39 Total Protein 7.4 g/dL (6.6-8.7) 06/10/24 02:39 Albumin 4.5 g/dL (3.5-5.2) 06/10/24 02:39 Globulin 2.9 g/dL (1.3-4.6) 06/10/24 02:39 Triglycerides 69 mg/dL (0-150) 06/10/24 04:44 Cholesterol 218 mg/dL (0-200) H 06/10/24 04:44 LDL Cholesterol, Calc 156 mg/dL (50-129) H 06/10/24 04:44 HDL Cholesterol 48 mg/dL (60-100) L 06/10/24 04:44 LDL/HDL Ratio 3.25 RATIO (0.00-3.22) H 06/10/24 04:44 Cholesterol/HDL Ratio 4.54 mg/dL (1.0-5.00) 06/10/24 04:44 Vitamin B12 632 pg/mL (232-1245) 06/10/24 04:44 TSH 4.75 uIU/mL (0.27-4.20) H 06/10/24 02:39 Free T4 1.35 ng/dL (0.82-1.77) 06/10/24 04:44 Urine Color Yellow (Yellow) 06/10/24 03:32 Urine Appearance Clear (CLEAR) 06/10/24 03:32 Urine pH 6.5 (5-7) 06/10/24 03:32 Ur Specific [place] 1.048 (1.005-1.030) H 06/10/24 03:32 Urine Protein Negative (Negative) 06/10/24 03:32 Urine Glucose (UA) Negative (Normal) 06/10/24 03:32 Urine Ketones Negative (Negative) 06/10/24 03:32 Urine Blood Trace (Negative) A 06/10/24 03:32 Urine Nitrate Negative (Negative) 06/10/24 03:32 Urine Bilirubin Negative (Negative) 06/10/24 03:32 Urine Urobilinogen 0.2 mg/dL (Negative) 06/10/24 03:32 Ur Leukocyte Esterase Negative (Negative) 06/10/24 03:32 Urine RBC 0-4 /hpf (0-2) H 06/10/24 03:32 Urine WBC 0-4 /hpf (0-5) H 06/10/24 03:32 Ur Squamous Epith Cells 0-4 /hpf (0-5) H 06/10/24 03:32 Amorphous Sediment Not Reportable 06/10/24 03:32 Urine Bacteria Trace /hpf (NONE) 06/10/24 03:32 Urine Opiates Screen Negative ng/mL (Negative) 06/10/24 03:32 Ur Barbiturates Screen Negative ng/mL (Negative) 06/10/24 03:32 Ur Phencyclidine Scrn Negative ng/mL (Negative) 06/10/24 03:32 Ur Amphetamines Screen Negative ng/mL (Negative) 06/10/24 03:32 U Benzodiazepines Scrn Negative ng/mL (Negative) 06/10/24 03:32 Urine Cocaine Screen Negative ng/mL (Negative) 06/10/24 03:32 U Marijuana (THC) Screen Negative ng/mL (Negative) 06/10/24 03:32 Ethyl Alcohol < 10 mg/dL (0-10) 06/10/24 02:39 Radiology Impressions Chest X-Ray 06/10/24 02:38 IMPRESSION: No acute findings. Head CT 06/10/24 02:38 IMPRESSION: 1. No acute intracranial abnormality identified. 2. If clinically indicated, consider further evaluation with MRI, which is more sensitive for detecting acute ischemic changes and other subtle pathology. ASSESSMENT: ASPECTS ([place] Stroke Program Early CT Score) is 10. ADDENDUM: 06/10/24 0302 ADDENDUM: THIS REPORT CONTAINS FINDINGS THAT MAY BE CRITICAL TO PATIENT CARE. The findings were verbally communicated via telephone conference with Jermaine Alonzo at 3:00 AM ORACLE REPORTS DEVELOPER on 06/10/2024. The findings were acknowledged and understood. Head/Neck CTA 06/10/24 02:38 IMPRESSION: No large vessel stenosis or occlusion. IMPRESSION: Severe, 80-90% stenosis in proximal to mid left ICA by NASCET criteria. REFERENCES: NASCET CRITERIA. The degree of stenosis in the cervical segment of the internal carotid artery is based on NASCET criteria. Normal is no stenosis. Mild is less than 50% stenosis. Moderate is 50-69% stenosis. Severe is 70% to 99% stenosis. Total occlusion is no detectable patent lumen. ADDENDUM: 06/10/24 0326 ADDENDUM: THIS REPORT CONTAINS FINDINGS THAT MAY BE CRITICAL TO PATIENT CARE. The findings were verbally communicated via telephone conference with Jermaine Alonzo at 3:25 AM ORACLE REPORTS DEVELOPER on 06/10/2024. The findings were acknowledged and understood. Recent Clincial Data Last Vital Signs Temp 97.8 F 06/11/24 11:08 Pulse 72 06/11/24 11:08 Resp 19 H 06/11/24 11:08 BP 200/94 06/11/24 11:09 Pulse Ox 92 06/11/24 11:08 O2 Del Method Room Air 06/11/24 11:08 Vital Signs Temp Pulse Resp BP Pulse Ox O2 Del Method 06/11/24 11:09 200/94 06/11/24 11:08 97.8 F 72 19 H 191/91 92 Room Air 06/11/24 10:00 94 18 95 Room Air 06/11/24 07:47 98.6 F 62 16 167/88 95 Room Air 06/11/24 05:42 79 06/11/24 04:00 98.0 F 63 15 166/84 95 Room Air Intake & Output/Weight 06/09/24 06/10/24 06/11/24 06/12/24 06:59 06:59 06:59 06:59 Intake Total 0 / 0 1653.75 / 1653.75 1446.25 / 1446.25 Balance 0 / 0 1653.75 / 1653.75 1446.25 / 1446.25 Weight 93.168 kg 94.937 kg Vitals Last Vital Signs Temp 97.8 F 06/11/24 11:08 Pulse 72 06/11/24 11:08 Resp 19 H 06/11/24 11:08 BP 200/94 06/11/24 11:09 Pulse Ox 92 06/11/24 11:08 O2 Del Method Room Air 06/11/24 11:08 TS Medications Medications Acetaminophen (Acetaminophen 500 Mg Tablet) 500 mg PO Q4H PRN PRN Reason: fever Last Admin: 06/10/24 21:02 Dose: 500 mg Albuterol/Ipratropium (Ipratropium-Albuterol 3 Ml Neb) 3 ml INHALATION Q6H PRN PRN Reason: SHORTNESS OF BREATH Aspirin (Aspirin 81 Mg Ec Tablet) 81 mg PO DAILY KORI Last Admin: 06/11/24 07:54 Dose: 81 mg Atorvastatin Calcium (Atorvastatin 40 Mg Tablet) 80 mg PO DAILY [facility] Last Admin: 06/11/24 07:54 Dose: 80 mg Clopidogrel Bisulfate (Clopidogrel 75 Mg Tablet) 75 mg PO DAILY [facility] Last Admin: 06/11/24 07:54 Dose: 75 mg Enoxaparin Sodium (Enoxaparin 40 Mg/0.4 Ml Syringe) 40 mg SUBCUT Q24H [facility] Last Admin: 06/11/24 05:57 Dose: 40 mg Sodium Chloride (Sodium Chloride 0.9%) 1,000 mls @ 75 mls/hr IV .[id number] [facility] Last Admin: 06/11/24 13:56 Dose: 75 mls/hr Labetalol HCl (Labetalol 5 Mg/Ml Sdv 20ml) 10 mg IVP Q4H PRN PRN Reason: sbp>220 or dbp>120 hold if hr<60 Levothyroxine Sodium (Levothyroxine 25 Mcg Tablet) 25 mcg PO QAM [facility] Last Admin: 06/11/24 05:57 Dose: 25 mcg Ondansetron HCl (Ondansetron 2 Mg/Ml Sdv 2 Ml) 4 mg IVP Q6H PRN PRN Reason: NAUSEA AND VOMITING Discontinued Medications Iohexol (Iohexol 350 Mg/Ml 500 Ml Btl (Per Ml)) 0 ml IV ONCE ONE Stop: 06/10/24 02:57 Last Admin: 06/10/24 02:56 Dose: 100 ml Labetalol HCl (Labetalol 5 Mg/Ml Sdv 20ml) 10 mg IV Q10M PRN PRN Reason: Prior to thrombolytic for BP>185/110 Allergies No Known Allergies Allergy (Verified 06/10/24 03:21) Home Medications amlodipine 5 mg tablet 5 mg PO DAILY 06/10/24 [History Confirmed 06/10/24] levothyroxine 25 mcg tablet 25 mcg PO QAM 06/10/24 [History Confirmed 06/10/24] metoprolol tartrate 25 mg tablet 25 mg PO BID 06/10/24 [History Confirmed 06/10/24] Discharge Plan Discharge Patient Disposition: Home Condition: Stable Prescriptions: No Action amlodipine 5 mg tablet 5 mg PO DAILY levothyroxine 25 mcg tablet 25 mcg PO QAM metoprolol tartrate 25 mg tablet 25 mg PO BID Patient Instructions: Opioid Safety Transfer Attestations Time Spent in Transfer Care: greater than 30 min Quality Metrics Clinical Quality Measures [ Cerebrovascular Accident { Contraindication to Antithrombotic: None; antithrombotic prescribed; Contraindication to Anticoagulation: Overlap treatment not indicated; Contraindication to Statin: None; Statin prescribed; Contraindication to tPA: Did not meet criteria;}] Coding Level of Care Code Acute Code for Chg Fwd Diagnoses Hypertension I10 Hypertension type: unspecified Acute ischemic left ICA stroke I63.232
== END 2024-06-11 18:19 | disposition short-term general hospital (02) ==
LOC: ER 03:03 → MEDSURG 03:14
PROVIDERS: Admitting Provider Internal Medicine; Emergency Provider Emergency Medicine; Visit Provider Family Medicine
DX: I63.232 Cerebral infarction due to unspecified occlusion or stenosis of left carotid arteries (principal); I10 Essential (primary) hypertension; R47.81 Slurred speech; R29.810 Facial weakness; E03.9 Hypothyroidism, unspecified; Z79.899 Other long term (current) drug therapy; Z79.890 Hormone replacement therapy; R06.02 Shortness of breath; I08.1 Rheumatic disorders of both mitral and tricuspid valves; G81.91 Hemiplegia, unspecified affecting right dominant side
CPT/HCPCS: 36415; 36416; 70450; 70496; 70498; 71045; 80048; 80053; 80061; 80306; 80307; 81001; 82607; 82962; 83036; 83735; 84100; 84439; 84443; 84484; 85025; 85610; 85730; 86140; 92523; 92610; 93005; 96372; 97161; 97166; 99285; C8929; G0378; J1650; J7030

== ENCOUNTER 2024-06-21 00:51 | Emergency (ER) | payer SELFPAY ==
--- NOTE | 2024-06-21 00:56 | ECG_ITS ---
[facility] 2024-[facility]21 Pat Name: Rogelio Christine Department: Room: Gender: Male Gambling Box Person: : [id number] Requested By: Jermaine Bahena Order Number: [id number] Ministerio MD: Avi Hale M.D. Measurements Intervals [place] Rate: 59 P: 34 ND: 175 QRS: 50 QRSD: 118 T: 66 QT: 368 QTc: 367 Interpretive Statements SINUS BRADYCARDIA WITH SINUS ARRHYTHMIA INCOMPLETE RIGHT BUNDLE BRANCH BLOCK [90+ ms QRS DURATION, TERMINAL R IN V1/V2, 40+ ms S IN I/aVL/V4/V5/V6] Compared to ECG 06/10/2024 08:42:50 Sinus rhythm no longer present Electronically Signed On 06-24-2024 18:10:20 TRAVOGRAPH OPERATOR by Avi Hale M.D. [id number]
[2024-06-21 00:59] VITALS: BP 161/104; PULSE 60; RESP 16; TEMP 36.3; O2SAT 97
--- NOTE | 2024-06-21 01:06 | ED_ITS ---
HPI - Chest Pain 2 General: Chief Complaint: Chest Pain Stated Complaint: Chest Pains Time Seen by Provider: 06/21/24 02:14 History of Present Illness: Patient presents to the ER with complaints of sudden onset chest pain that felt like something tore loose and then pulsations and pounding pressure up into his left side of his neck where he had surgery. Patient was talking on the phone when this happened. Otherwise before this he said everything was feeling good with no complaints. The pain and pressure in his chest has resolved but the pulsations in pressure in his neck has remained. Patient was transferred from this facility on 06/11/2024 to [facility] after having a CTA that showed severe 80 to 90% stenosis in the proximal to mid left internal carotid artery after he presented with strokelike symptoms. Patient stated that Dr. Paolo Todd stented his left internal carotid artery because it was too close to his bone to clean out, also while patient was up in [facility] he said he had 3 stents placed in his heart by Dr. Abhinav Augustin. Related Data Home Medications ?Medication ?Instructions ?Recorded ?Confirmed amlodipine 5 mg tablet 5 mg PO DAILY 06/10/2406/10 levothyroxine 25 mcg tablet 25 mcg PO QAM 06/10/24 metoprolol tartrate 25 mg tablet 25 mg PO BID 06/10/24 06/10/24 Allergies Allergy/AdvReac Type Severity Reaction Status Date / Time No Known Allergies Allergy Verified 06/21/24 01:03 Review of Systems 2 General: Reports: 10 or more systems reviewed and unremarkable except in HPI and below PFSH ED 2 PFSH: Medical History Breath shortness Hypertension Physical Exam 2 Const: COMMON NORMALS: no acute distress, average body habitus, patient oriented x3, no limitations, healthy appearing, alert and well nourished HENMT: COMMON NORMALS: normocephalic, atraumatic, hearing grossly normal bilaterally, external ears normal, Normal external nose present, moist oral mucous membranes and oropharynx normal HEAD & SCALP: normocephalic and atraumatic NOSE: Normal external nose present EXTERNAL EAR: Yes external ears normal Neck/C-Spine: COMMON NORMALS: no JVD OTHER: Healing surgical incision on left lower neck portion looks well with no external issues. Chest: COMMONS NORMALS: normal inspection of the chest and normal palpation of entire chest wall Resp: COMMON NORMALS: normal respiratory effort, No retractions, No use of accessory muscles and clear to auscultation bilaterally AUSCULTATION: clear to auscultation bilaterally Cardio: COMMON NORMALS: no JVD, regular rate, regular rhythm, S1 normal heart sound present, S2 normal heart sound present, No gallops present (Cardio), No clicks present (Cardio), No murmurs present (Cardio) and No rub (Cardio) R ATE: regular rate RHYTHM: regular rhythm HEART SOUNDS: S1 normal heart sound present and S2 normal heart sound present GI: COMMON NORMALS: Normal to inspection, nondistended, normoactive bowel sounds present, Soft to palpation, non-tender, No hepatosplenomegaly present and no masses PALPATION: Yes Soft to palpation and Yes No hepatosplenomegaly present Neuro: COMMON NORMALS: patient oriented x3 SENSORIUM/ORIENTATION: Yes alert Course 2 Vital Signs: Vital signs: Vital Signs Temperature 97.4 F L 06/21/24 00:59 Pulse Rate 60 06/21/24 03:26 Respiratory Rate 16 06/21/24 03:26 Blood Pressure 157/85 06/21/24 03:26 Pulse Oximetry 97 06/21/24 03:26 Oxygen Delivery Me thod Room Air 06/21/24 02:46 MDM - Chest Pain Medical Decision Making Chest x-ray showed no acute findings, lab work essentially unremarkable, initial troponin was 38, EKG showed no ST segment changes. Patient's blood pressure improved. Patient decided that he was ready to go and wanted to be discharged. Patient did not want to stay for the second troponin. Patient will be discharged. Medical Records I reviewed the patient's medical records. Lab Data I reviewed the patient's lab results. 06/21/24 01:30 06/21/24 01:30 Radiology Impressions Chest X-Ray 06/21/24 01:07 IMPRESSION: No acute findings. Laboratory Results WBC 8.68 10^3/uL (3.29-11.43) 06/21/24 01:30 RBC 4.89 10^6/uL (3.85-5.65) 06/21/24 01:30 Hgb 13.50 g/dL (11.27-16.99) 06/21/24 01:30 Hct 41.8 % (37-53) 06/21/24 01:30 MCV 85.5 fl (82-101) 06/21/24 01:30 MCH 27.6 pg (27-33) 06/21/24 01:30 MCHC 32.3 g/dL (30-55) 06/21/24 01:30 RDW 13.0 % (12.1-15.1) 06/21/24 01:30 Plt Count 246 10^3/cmm (157-399) 06/21/24 01:30 MPV 9.1 fL (7.4-10.4) 06/21/24 01:30 Neut % (Auto) 73.2 % 06/21/24 01:30 Lymph % (Auto) 17.7 % 06/21/24 01:30 [place] % (Auto) 6.5 % 06/21/24 01:30 Eos % (Auto) 2.2 % 06/21/24 01:30 Baso % (Auto) 0.1 % 06/21/24 01:30 Neut # (Auto) 6.35 10^3/uL (1.8-7.7) 06/21/24 01:30 Lymph # (Auto) 1.5 10^3/uL (0.8-4.8) 06/21/24 01:30 [place] # (Auto) 0.6 10^3/uL (0.2-0.9) 06/21/24 01:30 Eos # (Auto) 0.2 10^3/uL (0.0-0.8) 06/21/24 01:30 Baso # (Auto) 0.0 10^3/uL (0.0-0.1) 06/21/24 01:30 Nucleated RBC % (auto) 0 % 06/21/24 01:30 Nucleated RBCs # 0.0 /100WBC 06/21/24 01:30 Sodium 138 mmol/L (136-145) 06/21/24 01:30 Potassium 4.0 mmol/L (3.5-5.1) 06/21/24 01:30 Chloride 103 mmol/L (98-107) 06/21/24 01:30 Carbon Dioxide 22 mmol/L (22-29) 06/21/24 01:30 Anion Gap 18.0 (5-19) 06/21/24 01:30 BUN 11 mg/dL (8-23) 06/21/24 01:30 Creatinine 0.8 mg/dL (0.7-1.2) 06/21/24 01:30 GFR Calculation 96.4 mL/min (90-130) 06/21/24 01:30 Glucose 112 mg/dL (65-115) 06/21/24 01:30 Calculated Osmolality 286 mOsm/kg (285-295) 06/21/24 01:30 Calcium 9.0 mg/dL (8.5-10.5) 06/21/24 01:30 Total Bilirubin 0.5 mg/dL (0.15-1.2) 06/21/24 01:30 AST 28 U/L (0-40) 06/21/24 01:30 ALT 28 U/L (0-41) 06/21/24 01:30 Alkaline Phosphatase 60 U/L (40-130) 06/21/24 01:30 Troponin T Baseline 38 ng/L (0-15) H 06/21/24 01:30 Total Protein 6.6 g/dL (6.6-8.7) 06/21/24 01:30 Albumin 4.0 g/dL (3.5-5.2) 06/21/24 01:30 Globulin 2.6 g/dL (1.3-4.6) 06/21/24 01:30 All radiology interpretation(s) finalized by discharge Discharge Plan Discharge Patient Disposition: Home Clinical Impression: Atypical chest pain, Acute neck pain Condition: Stable Prescriptions: No Action amlodipine 5 mg tablet 5 mg PO DAILY levothyroxine 25 mcg tablet 25 mcg PO QAM metoprolol tartrate 25 mg tablet 25 mg PO BID Discharge Orders: Discharge ED (Routine); Ordered 06/21/24 Ordered By: Jermaine Bahena Patient Instructions: Chest Pain (ED), Acute Neck Pain (ED) Activity Restrictions/Additional Instructions: Your evaluation in the ER did not show any acute cardiac cause of your symptomatology. Your initial troponin was elevated at 38 this may be due to you having stents placed several days ago. We did not get a 2-hour troponin so we do not know if there would be any change. Please follow-up with your family practice physician, vascular surgeon, and hot metal car operator within the next 7 days for further evaluation treatment of your condition. If your condition worsens or changes please feel free to return to the ER. Thank you for choosing [facility] for your healthcare needs today. Please realize that you were seen in the emergency department and that we are providing you with an emergency medical screening exam and this may not be a complete and all exclusive of all testing and/or medical workup we may need to determine your element or severity of your illness. It is very important that you follow-up as instructed with your primary care provider or specialist for the additional evaluation and to discuss your medical treatment plan. You may return to the emergency department should you have concerns or if your condition changes or worsens in any way. Print Language: Hong Konger Coding Level of Care Code ED Extruder Operator Horizontal for Lj Gonzales
--- NOTE | 2024-06-21 01:07 | XRR_ITS ---
PROCEDURE INFORMATION: Exam: XR Chest Exam date and time: 06/21/2024 1:47 AM Age: 68 years old Clinical indication: Pain; Chest pressure; Prior surgery; Surgery date: <1 month; Surgery type: Stents and pacer; Additional info: Chest pain TECHNIQUE: Imaging protocol: Radiologic exam of the chest. Views: 1 view. COMPARISON: CR (CHEST, ) 06/10/2024 3:10 AM FINDINGS: Tubes, catheters and devices: Cardiac AICD. Coronary artery stents. Lungs: No consolidation. Pleural spaces: No large pleural effusion. No pneumothorax. Heart/Mediastinum: Cardiac silhouette within normal limits in size. Bones/joints: No acute abnormality. XR/XR chest 1V portable [id number] IMPRESSION: No acute findings.
[2024-06-21 01:40] LABS: Basophils % 0.1 %; Eosinophils # 0.2 10^3/uL (0.0-0.8); Eosinophils % 2.2 %; Hematocrit 41.8 % (37-53); Lymphocytes # 1.5 10^3/uL (0.8-4.8); Lymphocytes % 17.7 %; Mean Corpuscular HGB Conc 32.3 g/dL (30-55); Mean Corpuscular Hemoglobin 27.6 pg (27-33); Mean Corpuscular Volume 85.5 fl (82-101); Mean Platelet Volume 9.1 fL (7.4-10.4); Monocytes # 0.6 10^3/uL (0.2-0.9); Monocytes % 6.5 %; Neutrophils # 6.35 10^3/uL (1.8-7.7); Neutrophils % 73.2 %; Nucleated Red Blood Cells % 0 %; Platelet Count 246 10^3/cmm (157-399); Red Blood Count 4.89 10^6/uL (3.85-5.65); White Blood Count 8.68 10^3/uL (3.29-11.43)
[2024-06-21 01:52] VITALS: BP 181/83; PULSE 57; RESP 15; O2SAT 96
[2024-06-21 02:03] LABS: Troponin(5th) Baseline 38 ng/L (0-15)
[2024-06-21 02:07] LABS: Alanine Aminotransferase 28 U/L (0-41); Alkaline Phosphatase 60 U/L (40-130); Aspartate Amino Transferase 28 U/L (0-40); Blood Urea Nitrogen 11 mg/dL (8-23); Carbon Dioxide 22 mmol/L (22-29); Creatinine Clr Calc Pharmacy 98.0015; Globulin 2.6 g/dL (1.3-4.6); Glomerular Filtration Rate 96.4 mL/min (90-130); Glucose 112 mg/dL (65-115); Total Bilirubin 0.5 mg/dL (0.15-1.2); Total Protein 6.6 g/dL (6.6-8.7)
[2024-06-21 02:30] LABS: Chloride 103 mmol/L (98-107); Osmolality Calculated 286 mOsm/kg (285-295); Sodium 138 mmol/L (136-145)
[2024-06-21 02:46] VITALS: BP 158/95; PULSE 57; RESP 17; O2SAT 99
[2024-06-21 03:26] VITALS: BP 157/85; PULSE 60; RESP 16; O2SAT 97
== END 2024-06-21 03:27 | disposition home or self-care (01) ==
PROVIDERS: Emergency Provider Emergency Medicine
DX: R07.89 Other chest pain (principal); M54.2 Cervicalgia; I10 Essential (primary) hypertension
CPT/HCPCS: 36415; 71045; 80053; 84484; 85025; 93005; 99285